=== PATIENT | female | born 2000 | race Caucasian/White ===

== ENCOUNTER 2023-12-23 17:51 | Outpatient (CLI) | payer BC, SELFPAY ==
[2023-12-23 12:31] LABS: Abs Immature Grans 0.03 10^3/uL (0.0-0.06); Absolute Basophil Count 0.04 10^3/uL (0.0-0.2); Absolute Eosinophil Count 0.18 10^3/uL (0.0-0.7); Absolute Lymphocyte Count 2.61 10^3/uL (1.2-3.4); Absolute Monocyte Count 0.65 10^3/uL (0.1-0.8); Absolute Neutrophil Count 4.98 10^3/uL (1.2-6.7); Basophils % 0.5; Eosinophils % 2.1; HGB 12.5 g/dL (11.2-15.7); Immature Grans % 0.4; Lymphocytes % 30.7; MCH 27.2 pg (27.0-33.0); MCHC 32.1 % (32.0-36.0); MCV 85 fL (80-95); MPV 9.1 fL (8.0-11.0); Monocytes % 7.7; Neutrophils % 58.6; Platelet Count 386 10^3/uL (130-400); RBC 4.59 10^6/uL (3.93-5.22); RDW 14.6 % (11.7-14.6); RDW-SD 45.2 fL; WBC 8.49 10^3/uL (4.4-10.8)
[2023-12-23 12:51] LABS: Hemoglobin A1C 5.5 % (<5.7)
[2023-12-23 13:35] LABS: Vitamin D 25 Total 23.6 ng/mL (30-100)
[2023-12-23 13:43] LABS: ALT 29 U/L (14-59); AST 13 U/L (15-37); Albumin 4.2 g/dL (3.4-5.0); Alkaline Phosphatase 64 U/L (46-116); Anion Gap 8.8 mmol/L (3-11); BUN 13 mg/dL (7-18); Bilirubin, Total 0.4 mg/dL (0.2-1.0); CO2 29.2 mmol/L (21.0-32.0); CREATININE 0.7 mg/dL (0.55-1.02); Calcium 9.3 mg/dL (8.5-10.1); Calculated LDL 98 mg/dL (<100); Chloride 104 mmol/L (98-107); Cholesterol 177 mg/dL (<200); Estimated GFR 125.33 (mL/min/1.73m2); Glucose 83 mg/dL (74-106); HDL Cholesterol 57 mg/dL (40-60); Potassium 4.6 mmol/L (3.5-5.1); Sodium 142 mmol/L (136-145); TSH (W/Ref FT4) 1.18 uIU/mL (0.36-3.74); Total Protein 7.4 g/dL (6.4-8.2); Triglyceride 111 mg/dL (<150); Vitamin B12 361 pg/mL (193-986)
== END 2023-12-23 17:52 | disposition home or self-care (01) ==
LOC: LBO 12-25 17:52
PROVIDERS: Visit Provider Nurse Practitioner Family
DX: E66.9 Obesity, unspecified (principal); E55.9 Vitamin D deficiency, unspecified; D51.3 Other dietary vitamin B12 deficiency anemia; E78.5 Hyperlipidemia, unspecified; I10 Essential (primary) hypertension
CPT/HCPCS: 36415; 80053; 80061; 82306; 82607; 83036; 84443; 85025

== ENCOUNTER 2024-01-06 22:18 | Emergency (ER) | payer BC, MEDICAID, SELFPAY ==
[2024-01-06 22:21] VITALS: BP 132/78; PULSE 86; RESP 16; TEMP 36.3
--- NOTE | 2024-01-06 23:09 | W.ED.GENAD ---
Discharge Plan Disposition Patient Disposition: Home Condition: Good Discharge Details Clinical Impression: Back pain Primary Care Provider: Unknown,Unknown ED Provider: Ana Casiano Home Meds and New Rx's Prescriptions: Continued dextroamphetamine-amphetamine [Adderall] 5 mg tablet 5 mg PO DAILY bupropion HCl [Wellbutrin SR] 150 mg tablet sustained-release 12 hr 150 mg PO DAILY Discharge Instructions Instructions: Back Pain (ED) Additional Instructions: Call your primary care doctor tomorrow to schedule an appointment to follow up on your visit here. Return to the emergency department for new or worsening symptoms. Stand Alone Forms: Work Release HPI General Mode of arrival: ambulatory. Date/Time Provider Initiated Documentation: 01/06/24 22:25. Limitations to Documentation: no limitations. Information obtained by: patient. HPI Narrative: 23yo F presenting with acute low back pain. Was walking her dogs, there was a scuffle and she had to pull on the leash very assertively to get the dog free; twisted her back while doing this and had immediate severe pain. Pain is low lumbar and sacral and bilateral. She did not fall. Was initially severe however has since decreased markedly, mild to moderate. Has not taken any medications. No numbness, tingling, or weakness in her legs. She was in her usual state of health prior to this event. Related Data Home Medications Medication Instructions Recorded Confirmed bupropion HCl 150 mg tablet,12 hr 150 mg PO DAILY 01/06/24 01/06/24 sustained-release (Wellbutrin SR) dextroamphetamine-amphetamine 5 mg 5 mg PO DAILY 01/06/24 01/06/24 tablet (Adderall) Allergies Allergy/AdvReac Type Severity Reaction Status Date / Time latex Allergy rash Verified 01/06/24 22:34 General Stated Complaint: Nk/Back Pain MANNIE: 3 Review of Systems Narrative: see HPI Exam Narrative Exam Narrative: General: Alert, well appearing, well nourished, in no acute distress. Head: Normocephalic, atraumatic Neck: Trachea midline, ?Neck supple. Cardiac: ?No cyanosis. Resp: No respiratory distress. Spekaing in full sentences. . Abd: ?Non-distended Extremities: ?No deformities.? No peripheral edema. Back: No midline tenderness. Low lumbar and sacral paraspinal tenderness to palpation bilaterally. Neuro: ? GCS 15.? Fluent speech, no dysarthria. Motor- 5/5 strength symmetric bilateral lower extremities including hipflexors/extensors, knee flexors/extensors, ankle dorsiflexors and planter flexors. Sensation- ?Intact to light touch and symmetric multiple dermatomes lower extremities Gait/station: ?Normal stance.? No truncal ataxia. Steady gait with equal normal steps Course Vital Signs Vital signs: Vital Signs Temperature 36.3 C L 01/06/24 22:21 Pulse 86 01/06/24 22:21 Respiratory Rate 16 01/06/24 22:21 Blood Pressure 132/78 01/06/24 22:21 Temperature 36.3 C L 01/06/24 22:21 Temperature Source Temporal Artery Scan 01/06/24 22:21 Pulse 86 01/06/24 22:21 Respiratory Rate 16 01/06/24 22:21 Respiratory Effort Normal, Non-Labored 01/06/24 22:26 Blood Pressure 132/78 01/06/24 22:21 Pain Level 7 01/06/24 22:21 Medical Decision Making 23yo F presenting with acute low back pain. Was walking her dogs, pulled on the leash and twisted her back with immediate severe pain. No fall. Pain markedly improved since onset, now mild to moderate. Vital signs reassuring, on exam she has paraspinal tenderness. Normal neurologic exam. No red flags on history or exam for back pain; not concerned for fracture, cord compression, spinal epidural abscess or hematoma; would not get labs or CT/MRI imaging. Will treat with tylenol, ibuprofen, single dose of flexeril here. Discharged home; discharge instructions and return precautions were reviewed with patient who verbalized understanding. All questions were answered and she is in full agreement with the plan. Quality:[facility] Health Related Social Needs: No Data to Display [facility], [facility] All Active Problems (Updated 01/06/24 @ 23:10 by nAa Casiano MD) Back pain (Acute) Social History Smoking/Tobacco Use Status: Current every day Tobacco Type: e-cigarettes Smoking risk assessment performed?: Yes Substance use type: does not use Details: patient state she no longer uses marijuana Housing: house Do you feel safe at home: Yes Do you feel safe in your relationship?: Yes PAWSS Have you Been Recently Intoxicated or Drunk Within the Last 30 days?: No Have you Ever Experienced Previous Episodes of Alcohol Withdrawal?: No Have you ever Experienced Withdrawal Seizures?: No Have you ever Experienced Delirium Tremens(DT)s?: No Have you ever undergone Alcohol Rehabilitation Treatment (i.e, inpt ot outpatient treatment programs)?: No Have you ever Experienced Blackouts?: No Have you ever Combined Alcohol with other Downers within the last 90 days?: No Have you ever Combined Alcohol with any other Substance of Abuse during the last 90 days?: No Positive Blood Alcohol level on Presentation? [PCS.BAL]: No Evidence of Increased Autonomic Activity (i.e. HR>120, tremor, sweating, agitation, nausea)?: No Result: 0
[2024-01-06] MEDS: Ibuprofen 800 MG TAB PO (23:16)
[2024-01-06] MEDS: Cyclobenzaprine 10 MG TAB 5 MG PO (23:16)
[2024-01-06] MEDS: Acetaminophen 500 MG TAB 1000 MG PO (23:16)
[2024-01-06 23:49] VITALS: BP 121/64; PULSE 78; RESP 16; TEMP 36.6; O2SAT 98
== END 2024-01-06 23:49 | disposition home or self-care (01) ==
LOC: ER 23:57
PROVIDERS: Emergency Provider Student in an Organized Health Care Education/Training Program; PCP Nurse Practitioner Family
DX: M54.50 Low back pain, unspecified (principal)
CPT/HCPCS: 99283

== ENCOUNTER 2024-04-07 11:41 | Outpatient (REF) | payer BC, SELFPAY ==
--- NOTE | 2024-04-07 11:15 | PAPFT_PTH ---
PATIENT: Mary Beth Gorman LOC: [facility] U#:[id number] AGE/SX: 23/F ROOM: RE04/07/[address]: Eli Berrios : 2000 BED: DIS: 04/07/2024 SPEC #: [id number] RECD: 04/08/24 12:18 STATUS: ANDRES REHugo #: [id number] EDYTA: 04/07/24 11:[address]: Eli Berrios DEPT: [facility] Cytology RECD BY: Claribel Hay Tissues: 1 - CX/ENDOCX FOR PAP SMEARS Procedures: PAP THIN PREP/[facility] Screening HPV DNA PROBE Comments: [id number] (HPV 16 & 18/45)
[2024-04-09 12:16] LABS: Chlamydia Result Negative (Negative); GC Result Negative (Negative)
== END 2024-04-07 11:42 | disposition home or self-care (01) ==
LOC: LBN 11:41
PROVIDERS: PCP Nurse Practitioner Family; Visit Provider Nurse Practitioner Family
DX: Z12.4 Encounter for screening for malignant neoplasm of cervix (principal)
CPT/HCPCS: 87491; 87591; 88142; 87624

== ENCOUNTER 2024-04-14 12:40 | Outpatient (REF) | payer BC, SELFPAY ==
[2024-04-26 11:24] LABS: Specimen WB Whole Blood
== END 2024-04-14 12:41 | disposition home or self-care (01) ==
LOC: LBN 12:40
PROVIDERS: PCP Nurse Practitioner Family; Visit Provider Nurse Practitioner Family
DX: Z13.71 Encounter for nonprocreative screening for genetic disease carrier status (principal)
CPT/HCPCS: 81243; 83891; 83892; 83894; 83896; 83897; 83898